=== PATIENT | male | born 1985 | race Caucasian/White ===

== ENCOUNTER 2020-01-09 08:09 | Day surgery (SDC) | payer BC, SELFPAY ==
[2020-01-07 08:35] VITALS: BMI 25.7
[2020-01-09 08:30] VITALS: BP 136/73; PULSE 73; RESP 18; TEMP 36.4; O2SAT 100
[2020-01-09 09:49] VITALS: BP 128/80; PULSE 75; RESP 18; TEMP 36.5; O2SAT 97
--- NOTE | 2020-01-09 12:05 | [facility].OPNOTE ---
Date of procedure: 01/09/20 Pre-op Diagnosis:: Sterilization Post-op Diagnosis:: Sterilization Procedure performed:: Bilateral vasectomy Surgeon:: Hansel Dai MD Anesthesia: local Estimated blood loss (mL): 3 Clinical Note:: 34-year-old white male seen in the office recently for vasectomy consultation presents for the procedure today. Operative findings:: Preoperative scrotal and testicular examination within normal limits. Vasectomy went well without complication. Operative note:: Patient taken to the operating room after informed consent was obtained. The stretcher he was prepped and draped in the standard surgical fashion. Testicular examination was within normal limits. The left vas was grasped between thumb and index finger and brought up to the midline raphae. Local anesthetic was placed under the skin at the midline raphae and around the left nasal structure. After adequate analgesia incision was made in the midline raphae for about 1 cm length. A tenaculum was used to grasp the left vas and brought up through the incision. The basal sheath was then incised and the vas proper was grasped with a tenaculum the surrounding soft tissue was dissected away. A clip was placed distally and 2 hemoclips placed proximally. A 1 cm segment of the [place] excised and the proximal and distal basal lumen was cauterized. Left vas was dropped back into the left hemiscrotum and the right vas was brought up into the same midline incision. Local anesthetic was placed around the right vas and the identical procedure was performed as on the left. The right vas was dropped back into the hemiscrotum and hemostasis achieved. two 3-0 chromic's were placed into the vision in a vertical mattress fashion. Incision was covered with gauze pads and a jockstrap was placed compression. Sponge needle instrument count were correct at the end of the case. The patient tolerated well. Condition: stable Disposition: same day Specimens:: Vas segments were not sent for path Complications:: None
== END 2020-01-09 10:00 | disposition home or self-care (01) ==
PROVIDERS: PCP Internal Medicine Adolescent Medicine; Visit Provider Urology
PROC: (CPT 55250; principal; 2020-01-09 09:00)
DX: Z30.2 Encounter for sterilization (principal); I10 Essential (primary) hypertension; Z87.39 Personal history of other diseases of the musculoskeletal system and connective tissue
CPT/HCPCS: 55250